=== PATIENT | male | born 1990 | race American Indian/Alaskan Native ===

== ENCOUNTER 2017-02-24 11:15 | Emergency (ER) | payer OTHER ==
[2017-02-24 11:50] VITALS: BMI 23.7
[2017-02-24 11:52] VITALS: TEMP 99.4
[2017-02-24] MEDS ORDERED: Sodium Chloride 0.9% 1,000 ML IV STA (13:06)
[2017-02-24] MEDS ORDERED: Sodium Chloride 0.9% 1,000 ML ONE (13:38)
[2017-02-24 13:44] LABS: BASO % 0.9 % (0.0-2.0); EOS % 0.3 % (0.0-4.0); HEMOGLOBIN 12.2 g/dL (12.0-18.0); LYMPH # 0.8 K/uL (1.0-4.3); MEAN CELL VOLUME 94.2 fL (80.0-94.0); MEAN CORPUSCULAR HEMOGLOBIN 30.9 pg (27.0-31.0); MEAN CORPUSCULAR HGB CONC 32.7 g/dL (33.0-37.0); MEAN PLATELET VOLUME 9.4 fL (7.2-11.7); MONO # 0.3 K/uL (0.0-0.8); MONO % 6.7 % (0.0-10.0); NEUT # 3.9 K/uL (1.8-7.0); NEUT % 77.1 % (50.0-75.0); NRBC % 0.1 % (0.0-2.0); RBC 3.97 Mil/uL (4.40-5.90); RED CELL DISTRIBUTION WIDTH 14.4 % (11.5-14.5); WHITE BLOOD COUNT 5.1 K/uL (4.8-10.8)
[2017-02-24 13:50] LABS: ALBUMIN 4.2 g/dL (3.5-5.0)
[2017-02-24 13:53] LABS: AMYLASE 95 U/L (30-110); GFR AFRICAN-AMERICAN > 60; GFR NON-AFRICAN AMERICAN > 60
[2017-02-24 13:54] LABS: ALB/GLOB RATIO 1.4 (1.0-2.1); ALT/SGPT 45 U/L (21-72); AST/SGOT 30 U/L (17-59); BLOOD UREA NITROGEN 14 mg/dL (9-20); CALCIUM 9.1 mg/dl (8.6-10.4); LIPASE 65 U/L (23-300)
[2017-02-24 14:03] LABS: URINE BILIRUBIN NEGATIVE (NEGATIVE); URINE BLOOD NEGATIVE (NEGATIVE); URINE CLARITY Clear (Clear); URINE COLOR Straw (YELLOW); URINE GLUCOSE (UA) NORMAL (Normal); URINE LEUKOCYTE ESTERASE NEG Leu/uL (Negative); URINE NITRATE NEGATIVE (NEGATIVE); URINE PROTEIN NEGATIVE (NEGATIVE); URINE UROBILINOGEN NORMAL mg/dL (0.2-1.0)
--- NOTE | 2017-02-24 14:30 | RAD ---
PROCEDURE: CHEST RADIOGRAPH, 1 VIEW HISTORY: lightheadness COMPARISON: 01/24/2013 FINDINGS: LUNGS: Clear. PLEURA: No pneumothorax or pleural fluid seen. CARDIOVASCULAR: Normal. OSSEOUS STRUCTURES: No significant abnormalities. VISUALIZED UPPER ABDOMEN: Normal. OTHER FINDINGS: None. IMPRESSION: No active disease.
[2017-02-24 14:31] LABS: BARBITURATES, UR NEGATIVE (NEGATIVE)
[2017-02-24 14:32] LABS: BENZODIAZEPINES, UR NEGATIVE (NEGATIVE)
[2017-02-24 14:36] LABS: OPIATES, UR NEGATIVE (NEGATIVE)
[2017-02-24 14:37] LABS: PHENCYCLIDINE, UR NEGATIVE (NEGATIVE)
[2017-02-24 15:15] VITALS: PULSE 78; RESP 12; O2SAT 100
[2017-02-24 15:18] VITALS: BP 104/73
--- NOTE | 2017-02-24 15:59 | C.PDOC ---
History Of Present Illness Patient is a 26 y/o male presents to the ED for evaluation of muscle aches, and episode of lightheadedness while at work today. 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 As per , patient has not been feeling well for the past few days. Otherwise, denies any chest pain, shortness of breath, headache, nausea, vomiting, abdominal pain, fever, or any other associated symptoms at this time. Time Seen by Provider: 02/24/17 12:49 Chief Complaint (Nursing): Dizziness/Lightheaded History Per: Patient History/Exam Limitations: no limitations Onset/Duration Of Symptoms: Days Current Symptoms Are (Timing): Still Present Severity: None Pain Scale Rating Of: 0 Recent travel outside of the [place]: No Additional History Per: Patient, Family () Past Medical History Reviewed: Historical Data, Nursing Documentation, Vital Signs Vital Signs: Last Vital Signs Temp 99.4 F 02/24/17 11:50 Pulse 78 02/24/17 15:15 Resp 12 02/24/17 15:15 BP 104/73 02/24/17 15:15 Pulse Ox 100 02/24/17 16:57 - Medical History PMH: Asthma Family History: States: Unknown Family Hx - Social History Hx Tobacco Use: Yes Hx Alcohol Use: Yes Hx Substance Use: No - Immunization History Hx Influenza Vaccination: No Hx Pneumococcal Vaccination: No Review Of Systems Except As Marked, All Systems Reviewed And Found Negative. Constitutional: Positive for: Other (muscleaches). Negative for: Fever, Chills Cardiovascular: Positive for: Light Headedness. Negative for: Chest Pain, Palpitations Respiratory: Negative for: Cough, Shortness of Breath Gastrointestinal: Negative for: Nausea, Vomiting, Abdominal Pain Genitourinary: Negative for: Dysuria, Frequency, Hematuria Skin: Negative for: Rash Neurological: Negative for: Weakness, Numbness, Headache, Dizziness Physical Exam - Physical Exam Appears: Non-toxic, No Acute Distress Skin: Normal Color, Warm, Dry Head: Atraumatic, Normacephalic Eye(s): bilateral: Normal Inspection, EOMI Neck: Normal ROM, Supple Chest: Symmetrical, No Tenderness Cardiovascular: Rhythm Regular, No Murmur Respiratory: Normal Breath Sounds, No Rales, No Rhonchi, No Wheezing Gastrointestinal/Abdominal: Soft, No Tenderness Extremity: Normal ROM Neurological/Psych: Oriented x3, Normal Speech, Normal Cognition, No Other (no neurological deficits) ED Course And Treatment - Laboratory Results Result Diagrams: 02/24/17 13:39 02/24/17 13:39 ECG: Interpreted By Me, Viewed By Me ECG Rhythm: Sinus Rhythm ECG Interpretation: No Acute Changes Rate From EC (bpm) O2 Sat by Pulse Oximetry: 100 (on RA) Pulse Ox Interpretation: Normal Progress Note: Blood work, urinalysis, EKG, CXR ordered and reviewed. Patient was given IV fluids. On reassessment, patient reports feeling better, reports improvement of symptoms. Patient is ambulatory in the ED with steady gait. Patient is being discharged home, with instructions to follow up with PMD in 1- 2 days. Disposition - Disposition Disposition: HOME/ ROUTINE Disposition Time: 15:56 Condition: STABLE Additional Instructions: Follow up with PMD within 1-2 days. Return to ED if feel worse. Prescriptions: Ondansetron [Zofran Odt] 1 - 2 tab PO .Q4-6H PRN #20 odt PRN Reason: Nausea/Vomiting Instructions: Ondansetron (By mouth), Lightheadedness (ED) Forms: Work Excuse - Clinical Impression Clinical Impression: Lightheaded - PA / [employer] / Resident Statement MD/DO has reviewed & agrees with the documentation as recorded. - Scribe Statement The provider has reviewed the documentation as recorded by the Scribe Lori Mancia All medical record entries made by the Scribe were at my direction and personally dictated by me. I have reviewed the chart and agree that the record accurately reflects my personal performance of the history, physical exam, medical decision making, and the department course for this patient. I have also personally directed, reviewed, and agree with the discharge instructions and disposition.
--- NOTE | 2017-02-26 14:05 | CARD ---
APPROVED REPORT EKG Measurement Heart [id number] <Conclusion> Normal sinus rhythm Moderate voltage criteria for LVH, may be normal variant Borderline ECG
== END 2017-02-24 16:16 | disposition home or self-care (01) ==
LOC: C.ER 11:15
DX: R42 Dizziness and giddiness (principal)
CPT/HCPCS: 71010; 80053; 81001; 82150; 82550; 82948; 83690; 85025; 93005; 96360; 99285; G0480; J7040

== ENCOUNTER 2017-03-30 17:48 | Emergency (ER) | payer OTHER ==
[2017-03-30 17:55] VITALS: BMI 21.3
[2017-03-30 17:59] VITALS: BP 129/77; PULSE 86; RESP 18; TEMP 98.7; O2SAT 99
--- NOTE | 2017-03-30 18:51 | C.PDOC ---
History Of Present Illness 26 year old male who presents to the ER with a complaint of burning and swelling to the right foot from toes 2-4. Patient states he had an insect bite to the distal interior lower right leg 10 days ago that developed into a pimple but resolved itself. Denies fever, chills, weakness, or numbness. Time Seen by Provider: 03/30/17 18:19 Chief Complaint (Nursing): Lower Extremity Problem/Injury History Per: Patient History/Exam Limitations: no limitations Onset/Duration Of Symptoms: Days Current Symptoms Are (Timing): Still Present Location Of Injury: Right: Leg Quality Of Symptoms: Painful, Swollen Recent travel outside of the [place]: No Past Medical History Reviewed: Historical Data, Nursing Documentation, Vital Signs Vital Signs: Last Vital Signs Temp 98.7 F 03/30/17 17:56 Pulse 86 03/30/17 17:56 Resp 18 03/30/17 17:56 BP 129/77 03/30/17 17:56 Pulse Ox 99 03/30/17 19:48 - Medical History PMH: Asthma Surgical History: No Surg Hx Family History: States: Unknown Family Hx - Social History Hx Tobacco Use: Yes Hx Alcohol Use: Yes Hx Substance Use: No - Immunization History Hx Tetanus Toxoid Vaccination: Yes Hx Influenza Vaccination: No Hx Pneumococcal Vaccination: No Review Of Systems Constitutional: Negative for: Fever, Chills Skin: Positive for: Other (Swelling) Neurological: Negative for: Weakness, Numbness Physical Exam - Physical Exam Appears: Non-toxic, No Acute Distress Skin: Warm, Dry, Other (no skin breakdown noted between toes) Head: Atraumatic, Normacephalic Oral Mucosa: Moist Extremity: Normal ROM (x4), Capillary Refill (Good), Swelling (Mild between 2-4 toes, no warmth), Other (Dime size area of induration to right distal moore, no discharge) Pulses: Left Dorsalis Pedis: Normal, Right Dorsalis Pedis: Normal Neurological/Psych: Oriented x3, Normal Speech, Normal Cognition ED Course And Treatment O2 Sat by Pulse Oximetry: 99 (Room air) Pulse Ox Interpretation: Normal Medical Decision Making Medical Decision Making: Plan: Motrin Right foot x-ray Disposition Counseled Patient/Family Regarding: Studies Performed, Diagnosis, Need For Followup - Disposition Referrals: Podiatry Clinic [Outside] [facility] [Outside] [facility] [Outside] Disposition: HOME/ ROUTINE Disposition Time: 19:46 Condition: STABLE Additional Instructions: FOllow up in medical and podiatry clinics. Tylenol or Motrin for pain if needed. REturn to ER for any worse symptoms. Call [facility] if you have trouble making appointments. Forms: [facility] (Polish), General Discharge Instructions - Clinical Impression Clinical Impression: Foot pain, right - Scribe Statement The provider has reviewed the documentation as recorded by the Scribedin Alvarez All medical record entries made by the [place] were at my direction and personally dictated by me. I have reviewed the chart and agree that the record accurately reflects my personal performance of the history, physical exam, medical decision making, and the department course for this patient. I have also personally directed, reviewed, and agree with the discharge instructions and disposition.
--- NOTE | 2017-03-31 10:23 | RAD ---
PROCEDURE: Right foot 03/30/2017 HISTORY: swelling and pain to toes 2-4 COMPARISON: No prior study available for comparison. FINDINGS: BONES: The current study reveals no evidence displaced fracture nor dislocation. The osseous structures intact. No cortical destructive changes. JOINTS: There are hammertoe deformities of the 2nd through 5th digits are partially obscuring the DIP joints. SOFT TISSUES: Normal. OTHER FINDINGS: None. IMPRESSION: No definitive evidence of acute displaced fracture nor dislocation. Hammertoe deformities 2nd through 5th digits limited evaluation of DIP joints. If symptoms persist or occult fracture suspected clinically recommend repeat radiographs in 5-10 days as most fractures should become radiographically evident this timeframe.
== END 2017-03-30 20:06 | disposition home or self-care (01) ==
LOC: C.ER 17:48
DX: M79.671 Pain in right foot (principal)

== ENCOUNTER 2017-09-02 17:49 | Emergency (ER) | payer SELFPAY ==
[2017-09-02 18:12] VITALS: BMI 21.9
[2017-09-02 18:15] VITALS: BP 136/72; PULSE 84; RESP 18; TEMP 99; O2SAT 100
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
[2017-09-02] MEDS ORDERED: Amoxicillin-Clav 875-125 mg Tab PO STA (20:17)
[2017-09-02] MEDS ORDERED: Amoxicillin-Clav 875-125 mg Tab PO ONE (20:22)
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
--- NOTE | 2017-09-03 08:27 | RAD ---
PROCEDURE: Right small finger radiographs. HISTORY: injury COMPARISON: None. TECHNIQUE: AP radiograph of the right hand, as well as spot oblique and lateral images of small finger were obtained. FINDINGS: RIGHT SMALL FINGER: Normal right small finger, without fracture or focal lesion. Remainder of the right hand (as seen on the AP view) grossly remarkable only for AV likely old healed fracture distal 5th metacarpal bone. . JOINTS: Normal. SOFT TISSUES: Normal. OTHER FINDINGS: None. IMPRESSION: No acute fractures or dislocations seen related to the right small finger/5th digit. Old healed fracture is incidentally captured like at the 5th metacarpal bone.
== END 2017-09-02 20:40 | disposition home or self-care (01) ==
LOC: C.ER 17:49
DX: S61.216A Laceration without foreign body of right little finger without damage to nail, initial encounter (principal); S20.212A Contusion of left front wall of thorax, initial encounter; S20.211A Contusion of right front wall of thorax, initial encounter; S00.83XA Contusion of other part of head, initial encounter; Y04.0XXA Assault by unarmed brawl or fight, initial encounter; Z87.891 Personal history of nicotine dependence

== ENCOUNTER 2018-09-19 10:02 | Emergency (ER) | payer OTHER ==
[2018-09-19 10:03] VITALS: BMI 21.9
--- NOTE | 2018-09-19 10:39 | C.PDOC ---
History Of Present Illness 28 year old male presents to the emergency department via ambulance with complaints of lower back pain. Patient states that he fell multiple times over the last week. 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 Patient states that he did not obtain any imaging for his back, and states that he kept walking and working despite the pain. He denies taking any pain medication. He denies weakness, numbness, and dysuria. Time Seen by Provider: 09/19/18 10:26 Chief Complaint (Nursing): Back Pain History Per: Patient History/Exam Limitations: no limitations Onset/Duration Of Symptoms: Other (1 week) Current Symptoms Are (Timing): Worse Quality Of Discomfort: "Pain" Associated Symptoms: denies: Incontinence, New Weakness, New Numbness Exacerbating Factor(s): Movement (walking) Past Medical History Reviewed: Historical Data, Nursing Documentation, Vital Signs Vital Signs: Last Vital Signs Temp 98.2 F 09/19/18 10:11 Pulse 90 09/19/18 10:11 Resp 18 09/19/18 10:11 BP 120/78 09/19/18 10:11 Pulse Ox 100 09/19/18 10:11 - Medical History PMH: Asthma Surgical History: No Surg Hx Family History: States: No Known Family Hx - Social History Hx Tobacco Use: Yes Hx Alcohol Use: Yes Hx Substance Use: No - Immunization History Hx Tetanus Toxoid Vaccination: Yes Hx Influenza Vaccination: No Hx Pneumococcal Vaccination: No Review Of Systems Except As Marked, All Systems Reviewed And Found Negative. Genitourinary: Negative for: Dysuria Neurological: Negative for: Weakness, Numbness Physical Exam - Physical Exam Additional Physical Exam Comments: Constitutional: No acute distress. Head: Normocephalic. Atraumatic. Eyes: PERRL. ENT: Moist mucous membranes. Neck: Supple. No midline tenderness. Cardiovascular: Regular rate. Radial pulse 2+ bilaterally. Chest: No tenderness. Respiratory: Clear to auscultation bilaterally. GI: Soft. Nontender. Nondistended. Back: No CVA tenderness. No midline tenderness. Musculoskeletal: No tenderness or swelling of extremities. Full ROM at lower extremities. Skin: No rash. Neurologic: Alert, no focal deficit. Sensation intact to lower extremities. Motor strength 5/5 x 4. 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 Unable to check history. Patient questioned regarding previous history of opioid use, reported use of Percocet for injury in the past. Patient denied history of substance abuse. Instructed regarding dangers of opioid use and addiction. XR pelvis no fracture or dislocation. Patient sleeping in ED stretcher. Will discharge home, continue NSAIDs, Percocet as needed, f/u PMD, return to ED for worsening pain, fever, vomiting, dyspnea, urinary or bowel changes, or any other problem. Disposition - Disposition Referrals: [facility] [Outside] Disposition: HOME/ ROUTINE Disposition Time: 12:03 Condition: STABLE Prescriptions: Ibuprofen [Motrin] 600 mg PO Q6 #25 tab oxyCODONE/Acetaminophen [Percocet 5/325 mg Tab] 1 tab PO Q6 #10 tab Instructions: Low Back Pain (DC) Forms: [employer] (German) - Clinical Impression Clinical Impression: Low back pain - Scribe Statement The provider has reviewed the documentation as recorded by the Scribe (Stas Tom) Provider Attestation: All medical record entries made by the Scribe were at my direction and personally dictated by me. I have reviewed the chart and agree that the record accurately reflects my personal performance of the history, physical exam, medical decision making, and the department course for this patient. I have also personally directed, reviewed, and agree with the discharge instructions and disposition.
[2018-09-19 12:15] VITALS: BP 118/82; PULSE 84; RESP 16; TEMP 98; O2SAT 97
--- NOTE | 2018-09-19 14:06 | RAD ---
Date of service: 09/19/2018 PROCEDURE: Radiographs of the pelvis. HISTORY: fell,R sided lower back pain tender at iliac crest COMPARISON: None. FINDINGS: BONES: Pelvic Bones: Unremarkable. Hips: Grossly unremarkable. JOINTS: Sacroiliac Joints: Unremarkable. Pubic Symphysis: Unremarkable. OTHER FINDINGS: None. IMPRESSION: Unremarkable radiographs of the pelvis.
== END 2018-09-19 12:13 | disposition home or self-care (01) ==
LOC: C.ER 10:02
DX: M54.5 Low back pain (principal); Z72.0 Tobacco use
CPT/HCPCS: 72170; 96372; 99284; J1885